=== PATIENT | male | born 1995 | race Caucasian/White ===

== ENCOUNTER → 2022-06-01 | Outpatient (CLI) | payer OTHER ==
[2022-06-01 08:27] LABS: BASO # 0.02 K/mm3 (0.02-0.10); EOS # 0.01 K/mm3 (0.04-0.40); EOS % 0.2 % (0.0-4.0); HEMATOCRIT 46.3 % (42.0-52.0); HEMOGLOBIN 15.9 g/dL (13.5-18.0); LYMPH# 1.17 K/mm3 (1.50-4.00); MEAN CELL VOLUME 89 fl (78-100); MEAN CORPUSCULAR HEMOGLOBIN 31 pg (27-31); MEAN CORPUSCULAR HGB CONC 34 g/dL (33-37); MONO # 0.27 K/mm3 (0.20-0.80); NEU # 3.73 K/mm3 (1.40-6.50); PLATELET COUNT 200 K/mm3 (130-400); RED BLOOD COUNT 5.19 M/mm3 (4.20-5.60); RED CELL DISTRIBUTION WIDTH 11.5 % (11.5-14.5); WHITE BLOOD COUNT 5.2 K/mm3 (4.8-10.8)
[2022-06-01 08:35] LABS: ALBUMIN 4.5 g/dL (3.5-5.0); POTASSIUM 4.3 mmol/L (3.5-5.1)
[2022-06-01 08:36] LABS: CALCIUM 9.6 mg/dL (8.3-10.5)
[2022-06-01 08:38] LABS: TOTAL PROTEIN 7.3 g/dL (6.4-8.3)
[2022-06-01 08:40] LABS: TOTAL BILIRUBIN 0.4 mg/dL (0.2-1.2)
== END ==
LOC: LAB 08:10
PROVIDERS: Internal Medicine
DX: Z00.00 Encounter for general adult medical examination without abnormal findings (principal)